=== PATIENT | female | born 1985 | race Caucasian/White ===

== ENCOUNTER 2023-09-07 19:52 | Emergency (ER) | payer OTHER, SELFPAY ==
[2023-09-07 19:53] VITALS: BP 133/89
--- NOTE | 2023-09-07 21:52 | ED.GENMED ---
History of Present Illness
General
Chief Complaint: Swelling
Source: patient
Exam Limitations: none
Time Seen by Provider: 09/07/23 21:37
History of Present Illness
History of Present Illness:
This is a 37 year old female that comes in with c/o right arm pain and swelling. States that she donated Plasma today. State that while she was donating the IV was bothering her and she didn't think to much of this. Then after she left she can
hardly bend her arm, the upper arm is swollen and painful. Denies any fever, chills, chest pain, SOB, abd pain, nausea, vomiting, diarrhea, headache, dizziness, urinary burning.
Past History
Past History
ED Past Medical History: Psychiatric (Anxiety, Bipolar, Depression, Panic disorder, PTSD, )
ED Past Surgical History: Gynecological (D&C)
Social History
Tobacco: Smoker
Alcohol: None
Drug: Cocaine and Other (Methamphetamine)
Personal: Single
Living: with family
Employment: Not employed
Review of Systems
Review of Systems
All Other Systems: ROS reviewed and negative except as documented in HPI and ROS
Constitutional: Reports no symptoms; Denies fever or chills
EENT: Reports no symptoms
Respiratory: Reports no symptoms; Denies cough or trouble breathing
Cardiac: Reports no symptoms; Denies chest pain
ABD/GI: Reports no symptoms; Denies abdominal pain, nausea, vomiting or diarrhea
: Reports no symptoms; Denies dysuria, frequency or urgency
Musculoskeletal: Reports other (Right upper arm pain with swelling)
Skin: Reports no symptoms
Neurological: Reports no symptoms; Denies dizzy or headache
Psychiatric: Reports no symptoms
Phy Exam
General Physical Exam
General Presentation: no apparent distress
General age: appears stated age
General Skin: warm and dry
General Habitus: normal
General Mental: alert
General Hydration: appears well hydrated
ENT Exam
ENT Exam: TM's normal, pharynx normal and neck supple
Eye Exam
Eye Exam: EOMI
Cardiovascular Exam
Cardiovascular Exam: regular rate/rhythm, no edema, no murmur and normal peripheral pulses
Pulmonary Exam
Pulmonary Exam: lungs clear, no respiratory distress, no rales, chest non tender, no crackles, no rhonchi, no wheezing and no cough
Musculoskeletal Exam
Musculoskeletal Exam: other (Right arm negative for any redness. Slight upper arm swelling and tenderness with palpation, Limited ROM due to pain)
Skin Exam
Skin Exam: normal color, warm/dry, no rash and no petechia
Psychiatric Exam
Psychiatric Exam: normal mood/affect
Course
Orders/Labs/Results
Orders:
Orders
09/07/23 21:45
Arms, right US [US Periph Venous UPPER Ext RT] Urgent
Comment:
Reason For Exam: pAIN AND SWELLING
09/07/23 21:56
Ibuprofen [Motrin] 600 mg PO NOW STA
Vital Signs
Initial and Last Documented VS:
Initial Vital Signs
Temp Pulse Resp BP Pulse Ox
97.6 F 84 16 133/89 97
09/07/23 19:53 09/07/23 19:53 09/07/23 19:53 09/07/23 19:53 09/07/23 19:53
Last Documented Vital Signs
Temp Pulse Resp BP Pulse Ox
97.6 F 82 18 106/64 99
09/07/23 19:53 09/07/23 22:50 09/07/23 22:50 09/07/23 22:50 09/07/23 22:50
MDM/Problems Addressed
Differential Diagnosis Includes:
Phlebitis, DVT
MDM/Problems Addressed:
This is a 37 year old female that comes in with c/o right arm pain after donating plasma today.
Will get US.
Back into see patient. Explained that the US is negative. Will have patient do warm compresses to the arm. Follow up with the Family doctor for recheck. Ibuprofen as needed for pain. Return with any concerns.
Chronic conditions affecting care:
NA
Acute Exacerbation and/or Progression of Chronic Illness:
NA
*Radiology
Radiology exam reviewed: radiology read reviewed (US-No evidence of right upper extremity venous thrombus. )
*Pulse Oximetry
Patient hypoxic: no
*EKG
Interpreted by ED Provider?: NA
Rate: EKG- N/A
*[employer] Interpretation
Rate: [employer]- N/A
*Critical Care Note
Total Time (30-74mins, 75-104mins- exclusive of procedures): Not Applicable
ED Attending Note
-
Portions of this chart may have been created with voice recognition software.� Occasional wrong word or��sound alike� substitutions may have occurred due to the inherent limitations of voice recognition software.
Discharge Plan
Departure
Patient Disposition: Home (Routine Discharge)
Date of Disposition: 09/07/23
Time of Disposition: 23:29
Patient with high blood pressure during this ER visit?: No
Condition: Good
Covid-19: Not Applicable
Discharge Problem:
Arm pain, right
Prescriptions:
No Action
mupirocin 1 GRAM ointment
1 applic intranasal BID Qty: 1 0RF
Referrals:
Jose Wilks MD [Family Provider] - Call in 1-3 days for appt
Activity Restrictions/Additional Instructions:
As discussed, your US is negative for any blood clots. Please use warm compress to the right arm 3-4 times daily for 20min. Follow up with the family doctor for recheck. You may use Ibuprofen 600mg every 6 hours with food for pain. IF YOU HAVE ANY
REDNESS, INCREASED OR CHANGING PAIN, OR YOU HAVE ANY OTHER CONCERNS PLEASE RETUTN TO THE EMERGENCY ROOM.
Interventions
Interventions:
*Risk Screen - Suicide Last Done: 09/07/23 22:29
*General Assessment Last Done: 09/07/23 19:53
*Neglect/Abuse Screening Last Done: 09/07/23 22:35
*ED COVID-19 Vaccine History Last Done: 09/07/23 19:53
ED- Cardiac Assessment Last Done: 09/07/23 21:16
ED- Pulmonary Assessment Last Done: 09/07/23 21:16
ED-Skin Assessment Last Done: 09/07/23 22:28
Discharge Date and Time
Print Language: ANDORRAN
[2023-09-07] MEDS: MOTRIN 600 MG PO (22:03)
[2023-09-07 22:50] VITALS: BP 106/64
[2023-09-07 23:41] VITALS: BP 95/60
[2023-09-07 23:42] VITALS: BP 95/60
== END 2023-09-07 23:43 | disposition home or self-care (01) ==
LOC: EMR 19:52
PROVIDERS: EMERGENCY PHYSICIAN Emergency Medicine; FAMILY PHYSICIAN Family Medicine
DX: M79.601 Pain in right arm (principal); M79.89 Other specified soft tissue disorders; F31.9 Bipolar disorder, unspecified; F43.10 Post-traumatic stress disorder, unspecified; F41.9 Anxiety disorder, unspecified; F32.A Depression, unspecified; F17.200 Nicotine dependence, unspecified, uncomplicated
CPT/HCPCS: 99284; 93971

== ENCOUNTER 2023-11-06 03:31 | Emergency (ER) | payer OTHER, SELFPAY ==
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
[2023-11-06 03:58] LABS: % Basophils 0.7 % (0-2); % Immature Granulocytes 0.3 % (0-0.5); % Lymphocytes 16.8 % (20.5-51.1); % Monocytes 4.8 % (1.7-9.3); % Neutrophils 77.4 % (42.2-75.2); Absolute Basophils 0.1 10^3/uL (0-0.2); Absolute Lymphocytes 1.6 10^3/uL (1.2-3.4); Absolute Monocytes 0.5 10^3/uL (0.1-0.6); Absolute Neutrophils 7.2 10^3/uL (1.4-6.5); Hemoglobin 12.9 g/dL (12.0-16.0); Mean Corp Hgb Conc. 34.9 g/dL (33.0-37.0); Mean Corpuscular Hgb 29.3 pg (27.0-31.0); Mean Corpuscular Volume 84.1 fL (81.0-99.0); Mean Platelet Volume 10.5 fL (7.4-10.4); Nucleated Red Blood Cells % 0 %; Platelet Count 257 10^3/uL (130-400); Red Cell Dist. Width 14.5 % (11.5-14.5); White Blood Cell Count 9.3 10^3/uL (4.8-10.8)
[2023-11-06 04:13] LABS: HCG, Serum Qualitative Screen Negative
[2023-11-06 04:16] LABS: ALT (SGPT) 47 U/L (0-35); AST (SGOT) 82 U/L (14-36); Albumin 4.9 g/dl (3.5-5.0); Alkaline Phosphatase 60 U/L (38-126); Blood Urea Nitrogen 5 mg/dl (7-17); Calcium 9.8 mg/dl (8.4-10.2); Carbon Dioxide 34 mmol/L (22-30); Chloride 98 mmol/L (98-107); Glucose 136 mg/dl (70-99); Potassium 3.8 mmol/L (3.5-5.1); Sodium 143 mmol/L (135-145); Total Bilirubin 0.7 mg/dl (0.2-1.3); Total Protein 7.4 g/dl (6.3-8.2); eGFR > 60.00
[2023-11-06 06:40] VITALS: BP 120/87
[2023-11-06] MEDS: ATIVAN 0.5 MG PO (07:23)
--- NOTE | 2023-11-06 09:14 | CM ---
ED CM consult for dc planning
Reviewed pt with nursing
Bedside visit with patient to gather background info- unable to gather pertinent psychosocial hx
Pt became agitated and angry with CM utilizing profanity
Accused CM of utilizing her phone to change what her face will look like once she leaves the hospital
Update provided to crisis
Awaiting outcome of psych and crisis eval
CM will remain available for support as needed
[2023-11-06] MEDS: TYLENOL 650 MG PO (11:17)
--- NOTE | 2023-11-06 16:08 | CON.MD ---
Consultation - Medical
-
Pt presented to ED with report of not feeling safe at home, psychiatry consulted due to concerns for paranoia. Pt observed to be pacing, looking around suspiciously - notably paranoid throughout interview. Admitted to hearing AH of voices, says
they say 'positive things' but are nonetheless distracting and interfere with day. Reports feeling unsafe at home - thinks her mother and her kids are out to harm her so came to ER to get help and 'feel safe'. Mom spoke to tray service worker earlier
today and reported that pt has not been caring for herself, hasn't showered in 2 weeks, in increasingly more paranoid and has not been taking her medication. Pt has a long history of inpatient admissions and poor medication adherence. Mom has
custody of all 6 of pts kids, though pt also lives with them.
Pt is categorically against taking any medication while she is here, though did attempt to encourage her.
Unspecified psychosis
MSE: fair eye contact, suspicious, speech is nl rate & rhythm though at times becomes loud. Mood is paranoid, affect is paranoid as well and somewhat labile at times. Thought process is ruminative/preoccupied. Thought content: +AH & +delusions,
denies SI/HI. Memory not formally tested. Insight/judgement poor.
Pt is agreeable to inpatient admission - crisis will perform bed search.
Refusing medication though did place orders for PRN medications if pt becomes agitated
Backup 302 (was not needed)
== END 2023-11-06 15:40 ==
LOC: EMR 03:31
PROVIDERS: CONSULT PHYSICIAN Psychiatry & Neurology Psychiatry; EMERGENCY PHYSICIAN Student in an Organized Health Care Education/Training Program
DX: F29 Unspecified psychosis not due to a substance or known physiological condition (principal); F22 Delusional disorders; F17.200 Nicotine dependence, unspecified, uncomplicated
CPT/HCPCS: 99285; 80053; 84703; 85025

== ENCOUNTER 2024-08-08 17:51 | Emergency (ER) | payer OTHER, SELFPAY ==
[2024-08-08 17:52] VITALS: BP 132/83
--- NOTE | 2024-08-08 19:17 | EDRN ---
Spoke w/ LOBO at this time, aware of pt., to come see pt. in rm. 30.
[2024-08-08] MEDS: ZOFRAN ODT (ORALLY DISINTEGRATING) 4 MG PO (20:51)
[2024-08-08] MEDS: SUBUTEX 8 MG SL (20:51)
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
== END 2024-08-08 21:17 | disposition other institution (70) ==
LOC: EMR 17:51
PROVIDERS: EMERGENCY PHYSICIAN Student in an Organized Health Care Education/Training Program; PRIMARYCARE PHYSICIAN Family Medicine
DX: F19.10 Other psychoactive substance abuse, uncomplicated (principal); R11.0 Nausea; F17.200 Nicotine dependence, unspecified, uncomplicated
CPT/HCPCS: 99283